=== PATIENT | female | born 1990 | race Caucasian/White ===

== ENCOUNTER 2018-09-14 15:29 | Outpatient (CLI) | payer OTHER ==
[2018-09-14] MEDS ORDERED: PRENATABS RX T1 EACH PO (16:12)
== END 2018-09-15 15:18 | disposition home or self-care (01) ==
LOC: OBS/DEL 15:29
DX: O60.03 Preterm labor without delivery, third trimester (principal); Z34.83 Encounter for supervision of other normal pregnancy, third trimester

== ENCOUNTER 2018-09-25 03:16 | Inpatient (IN) | payer OTHER ==
[~2018-09-25] VITALS: Ht 149.9 cm; Wt 3.2 kg
[~2018-09-25 03:16] MED LIST: PRENATABS RX T1 EACH PO
[2018-09-28] MEDS ORDERED: EC-NAPROSYN375 MG PO (09:14)
[2018-09-28] MEDS ORDERED: PREPLUS CA-FE1 EACH PO (09:14)
== END 2018-09-28 14:09 | DRG 785 ==
LOC: LDR 03:16 → OB/GYN 03:16
PROVIDERS: ADMIT Obstetrics & Gynecology
PROC: 0UB70ZZ Excision of Bilateral Fallopian Tubes, Open Approach (ICD-10-PCS; 2018-09-25)
PROC: 4A1HXCZ Monitoring of Products of Conception, Cardiac Rate, External Approach (ICD-10-PCS; 2018-09-25)
PROC: 4A033R1 Measurement of Arterial Saturation, Peripheral, Percutaneous Approach (ICD-10-PCS; 2018-09-25)
PROC: 10D00Z1 Extraction of Products of Conception, Low, Open Approach (ICD-10-PCS; principal; 2018-09-25 13:30)
DX: O24.410 Gestational diabetes mellitus in pregnancy, diet controlled (principal); O34.211 Maternal care for low transverse scar from previous cesarean delivery; O75.82 Onset (spontaneous) of labor after 37 completed weeks of gestation but before 39 completed weeks gestation, with delivery by (planned) cesarean section; Z3A.38 38 weeks gestation of pregnancy; Z37.0 Single live birth; Z30.2 Encounter for sterilization